=== PATIENT | male | born 1965 | race African-American/Black ===

== ENCOUNTER 2017-01-01 16:37 | Emergency (ER) | payer BC ==
--- NOTE | 2017-01-01 17:32 | ER Document Report ---
ED Medical Screen (RME) - General Chief Complaint: Arm Pain Stated Complaint: LEFT ARM TINGLING Time Seen by Provider: 01/01/17 17:19 TRAVEL OUTSIDE OF THE [place] IN LAST 30 DAYS: No - HPI Notes: 01/01/17 17:28 Patient is a 51-year-old male who presents the ED complaining of numbness and tingling from his left shoulder into his left fifth digit 2 days. Patient states that he works for [employer] and was reaching up for a box when he felt the initial twinge in his arm, but the discomfort did not start until later that evening. Patient states that he has been having some trouble sleeping because of the "pinching" in the left arm. Patient states that squeezing on his left arm can increase his symptoms into his left fifth digit. Patient states that he is just concerned because he had a double bypass in 2014. Patient states that he did have a recent visit with his PCM 2 weeks ago and had blood work performed, but he still waiting for the results of that. Patient states that he did have a stress test 1 month ago and was unremarkable. Patient denies any muscle weakness/paralysis. Denies any headache, fever, URI, sore throat, chest pain, palpitations, syncope, dyspnea on exertion, cough, wheeze, shortness of breath, dyspnea, abdominal pain, nausea/vomiting/diarrhea, dysuria, or rash. Denies any drug allergies. Patient also has a past medical history significant for high cholesterol and hypertension. His PCM is Dr. Chung. Patient reports being a former smoker, and denies any illicit drug use. No recent travel, sick contacts, or illness. I have treated and performed a rapid initial assessment of this patient. A comprehensive ED assessment and evaluation of the patient, analysis of test results and completion of medical decision making process will be conducted by additional ED providers. - Related Data Allergies/Adverse Reactions: No Known Allergies Allergy (Verified 01/01/17 17:12) Past Medical History - Past Medical History Cardiac Medical History: Reports: Hx Coronary Artery Disease, Hx Hypercholesterolemia, Hx Hypertension Renal/ Medical History: Denies: Hx Peritoneal Dialysis Past Surgical History: Reports: Hx Cardiac Surgery - double bypass, Hx Gastric Bypass Surgery - 2 vessel bypass at [facility] , Hx Orthopedic Surgery - right shoulder, back. - Immunizations Immunizations up to date: Yes Hx Diphtheria, Pertussis, Tetanus Vaccination: Yes Physical Exam - Vital signs Vitals: Temp Pulse Resp BP Pulse Ox 97.9 F 64 12 123/66 99 01/01/17 16:49 01/01/17 16:49 01/01/17 16:49 01/01/17 16:49 01/01/17 16:49 - Respiratory Respiratory status: No respiratory distress Breath sounds: Normal - Cardiovascular Rhythm: Regular Heart sounds: Normal auscultation Course - Vital Signs Vital signs: Temp Pulse Resp BP Pulse Ox 97.9 F 64 12 123/66 99 01/01/17 16:49 01/01/17 16:49 01/01/17 16:49 01/01/17 16:49 01/01/17 16:49
[2017-01-01 18:35] LABS: ABSOLUTE BASOPHILS # (AUTO) 0.1 10^3/uL (0.0-0.2); ABSOLUTE EOSINOPHILS # (AUTO) 0.2 10^3/uL (0.0-0.6); ABSOLUTE LYMPHOCYTES (AUTO) 1.9 10^3/uL (0.5-4.7); ABSOLUTE MONOCYTES (AUTO) 0.6 10^3/uL (0.1-1.4); ABSOLUTE NEUT (AUTO) 3.4 10^3/uL (1.7-8.2); EOSINOPHILS % (AUTO) 2.6 % (0-6); LYMPHOCYTES % (AUTO) 31.4 % (13-45); MEAN CORPUSCULAR HEMOGLOBIN 30.1 pg (27.0-33.4); MEAN CORPUSCULAR HGB CONC 33.4 g/dL (32.0-36.0); MEAN CORPUSCULAR VOLUME 90 fl (80-97); MONOCYTES % (AUTO) 9.7 % (3-13); RED BLOOD COUNT 4.32 10^6/uL (4.35-5.55); RED CELL DISTRIBUTION WIDTH 12.8 % (11.5-14.0); SEGMENTED NEUTROPHILS % (AUTO) 55.3 % (42-78); WHITE BLOOD COUNT 6.2 10^3/uL (4.0-10.5)
[2017-01-01 18:53] LABS: ALANINE AMINOTRANSFERASE 58 U/L (21-72); ALBUMIN 4.2 g/dL (3.5-5.0); ALKALINE PHOSPHATASE 79 U/L (38-126); ANION GAP 9 (5-19); ASPARTATE AMINO TRANSFERASE 29 U/L (17-59); BILIRUBIN,DIRECT 0.2 mg/dL (0.0-0.4); BILIRUBIN,TOTAL 0.8 mg/dL (0.2-1.3); BLOOD UREA NITROGEN 29 mg/dL (7-20); CALCIUM 9.3 mg/dL (8.4-10.2); CARBON DIOXIDE 28 mmol/L (22-30); CHLORIDE 102 mmol/L (98-107); CREATINE KINASE 229 U/L (55-170); GLUCOSE 89 mg/dL (75-110); POTASSIUM 4.4 mmol/L (3.6-5.0); SODIUM 139.3 mmol/L (137-145); TOTAL PROTEIN 7.8 g/dL (6.3-8.2)
[2017-01-01 19:04] LABS: CREATINE KINASE MB 2.14 ng/mL (<4.55)
[2017-01-01 19:06] LABS: TROPONIN I < 0.012 ng/mL
--- NOTE | 2017-01-01 19:21 | RADIOLOGY REPORT (SQ) ---
EXAM DESCRIPTION: CHEST SINGLE VIEW COMPLETED DATE/TIME: 01/01/2017 6:59 pm REASON FOR STUDY: Lt arm numbness/tingling COMPARISON: 03/21/2016 EXAM PARAMETERS: NUMBER OF VIEWS: One view. TECHNIQUE: Single frontal radiographic view of the chest acquired. RADIATION DOSE: NA LIMITATIONS: None. FINDINGS: LUNGS AND PLEURA: No opacities, masses or pneumothorax. No pleural effusion. MEDIASTINUM AND HILAR STRUCTURES: No masses. Contour normal. HEART AND VASCULAR STRUCTURES: Heart normal for technique. Normal vasculature. BONES: No acute findings. HARDWARE: Median sternotomy wires, unchanged. OTHER: No other significant finding. IMPRESSION: NO ACUTE RADIOGRAPHIC FINDING IN THE CHEST. TECHNICAL DOCUMENTATION: JOB ID: [id number]
--- NOTE | 2017-01-01 19:40 | ER Document Report ---
ED General - General Chief Complaint: Arm Pain Stated Complaint: LEFT ARM TINGLING Time Seen by Provider: 01/01/17 17:19 Notes: Patient is a 51-year-old male with a prior history of a double bypass CABG 2 years ago who presents with 2 days of paresthesias to his left forearm and fourth and fifth digit of the left hand. States that this started after he lifted a heavy box. Since that time nothing improves or worsens the symptoms. He denies any significant pain to the area, loss of actual sensation, or loss of motor function. No history of similar symptoms in the past. He has not seen his primary care doctor regarding today's concerns. He denies any chest pain, shortness of breath, diaphoresis or vomiting. TRAVEL OUTSIDE OF THE [place] IN LAST 30 DAYS: No - Related Data Allergies/Adverse Reactions: No Known Allergies Allergy (Verified 01/01/17 17:12) Past Medical History - General Information source: Patient - Social History Smoking Status: Never Smoker Chew tobacco use (# tins/day): No Frequency of alcohol use: None Drug Abuse: None Lives with: Spouse/Significant other Family History: Reviewed & Not Pertinent - Past Medical History Cardiac Medical History: Reports: Hx Coronary Artery Disease, Hx Hypercholesterolemia, Hx Hypertension Renal/ Medical History: Denies: Hx Peritoneal Dialysis Past Surgical History: Reports: Hx Cardiac Surgery - double bypass, Hx Gastric Bypass Surgery - 2 vessel bypass at [facility] , Hx Orthopedic Surgery - right shoulder, back. - Immunizations Immunizations up to date: Yes Hx Diphtheria, Pertussis, Tetanus Vaccination: Yes Review of Systems - Review of Systems Notes: Constitutional: Negative for fever. HENT: Negative for sore throat. Eyes: Negative for visual changes. Cardiovascular: Negative for chest pain. Respiratory: Negative for shortness of breath. Gastrointestinal: Negative for abdominal pain, vomiting or diarrhea. Genitourinary: Negative for dysuria. Musculoskeletal: Negative for back pain. Skin: Negative for rash. Neurological: Negative for headaches, positive for paresthesias to left forearm and hand 10 point ROS negative except as marked above and in HPI. Physical Exam - Vital signs Vitals: Temp Pulse Resp BP Pulse Ox 97.9 F 64 12 123/66 99 01/01/17 16:49 01/01/17 16:49 01/01/17 16:49 01/01/17 16:49 01/01/17 16:49 Interpretation: Normal Notes: PHYSICAL EXAMINATION: GENERAL: Well-appearing, well-nourished and in no acute distress. HEAD: Atraumatic, normocephalic. EYES: Pupils equal round and reactive to light, extraocular movements intact, sclera anicteric, conjunctiva are normal. ENT: nares patent, oropharynx clear without exudates. Moist mucous membranes. NECK: Normal range of motion, supple without lymphadenopathy LUNGS: Breath sounds clear to auscultation bilaterally and equal. No wheezes rales or rhonchi. HEART: Regular rate and rhythm without murmurs ABDOMEN: Soft, nontender, normoactive bowel sounds. No guarding, no rebound. No masses appreciated. EXTREMITIES: Normal range of motion, no pitting or edema. No cyanosis. NEUROLOGICAL: No focal neurological deficits. Moves all extremities spontaneously and on command. RMU motor and sensory distribution is intact bilaterally. PSYCH: Normal mood, normal affect. SKIN: Warm, Dry, normal turgor, no rashes or lesions noted. Course - Re-evaluation Re-evalutation: 01/01/17 19:36 Patient presents with left forearm and fifth and fourth finger tingling consistent with an ulnar radiculopathy. Patient does have paresthesias to the 4th and 5th digit but no true loss of sensation. Pain is reproduced on palpation of the ulnar nerve at the epicondyle. Patient denies any chest pain or shortness of breath. His clinical history is not consistent with acute ACS given duration of symptoms, and the nature of patient's symptoms on examination. EKG, chest x-ray and a troponin are normal. No indication for serial markers given clinical history, duration of symptoms and reassuring evaluation. At this time will discharge with return precautions and follow-up recommendations. Verbal discharge instructions given a the bedside and opportunity for questions given. Medication warnings reviewed. Patient is in agreement with this plan and has verbalized understanding of return precautions and the need for primary care follow-up in the next 24-72 hours. - Vital Signs Vital signs: Temp Pulse Resp BP Pulse Ox 97.9 F 52 L 18 129/81 H 99 01/01/17 20:57 01/01/17 20:57 01/01/17 20:57 01/01/17 20:57 01/01/17 20:57 - Laboratory Result Diagrams: 01/01/17 18:20 01/01/17 18:20 Laboratory results interpreted by me: 01/01/17 01/01/17 18:20 18:20 RBC 4.32 L Hgb 13.0 L BUN 29 H Creatinine 1.50 H Est GFR (Non-Af Amer) 49 L Creatine Kinase 229 H - Diagnostic Test Radiology reviewed: Image reviewed, Reports reviewed Radiology results interpreted by me: 01/01/17 19:43 CXR: No acute infiltrate or pneumothorax - EKG Interpretation by Me Additional EKG results interpreted by me: 01/01/17 19:44 Sinus bradycardia. Rate 57. No ST elevations or depressions. QTC is 398. Discharge - Discharge Clinical Impression: Neurapraxia of left ulnar nerve Qualifiers: Encounter type: initial encounter Qualified Code(s): S54.02XA - Injury of ulnar nerve at forearm level, left arm, initial encounter Condition: Good Disposition: HOME, SELF-CARE Additional Instructions: Your symptoms are likely due to irritation of your ulnar nerve. You should take ibuprofen 600 mg every 6 hours to help reduce the inflammation and improve your pain. You can also apply heat to your elbow area where you have pain. Follow-up with your primary care doctor in the next several days. Return if you develop loss of sensation, weakness, chest pain, shortness of breath, or any other symptoms that are worrisome to you.
[2017-01-01 20:58] VITALS: BP 129/81
--- NOTE | 2017-01-02 13:43 | EKG REPORT ---
SEVERITY:- NORMAL ECG - SINUS RHYTHM ST ELEV, PROBABLE NORMAL EARLY REPOL PATTERN : Confirmed by: Sonia Kumar MD 02-Jan-2017 13:43:02
== END 2017-01-01 20:57 | disposition home or self-care (01) ==
LOC: ER 16:37
DX: S54.02XA Injury of ulnar nerve at forearm level, left arm, initial encounter (principal); X50.0XXA Overexertion from strenuous movement or load, initial encounter; R20.2 Paresthesia of skin; R00.1 Bradycardia, unspecified; I10 Essential (primary) hypertension; Z95.1 Presence of aortocoronary bypass graft; I25.10 Atherosclerotic heart disease of native coronary artery without angina pectoris; Z98.84 Bariatric surgery status
CPT/HCPCS: 36415; 71010; 80053; 82550; 82553; 84484; 85025; 93005; 93010; 99284

== ENCOUNTER 2018-07-28 20:36 | Emergency (ER) | payer BC ==
[2018-07-28 21:30] VITALS: BP 158/72
[2018-07-28] MEDS ORDERED: SUCRALFATE 1 GM TABLET PO ONE (23:26)
[2018-07-28] MEDS ORDERED: METOCLOPRAMIDE HCL ORAL SOLN 10 MG/10 ML UDCUP PO ONE (23:26)
[2018-07-28] MEDS ORDERED: LIDOCAINE 2% VISCOUS SOLN 20 ML UDCUP PO ONE (23:26)
[2018-07-28] MEDS ORDERED: MAG HYDROX/AL HYDROX/SIMETH SUSP 30 ML UDCUP PO ONE (23:26)
[2018-07-28] MEDS ORDERED: FAMOTIDINE 20 MG TABLET PO ONE (23:26)
[2018-07-28 23:46] LABS: ABSOLUTE BASOPHILS # (AUTO) 0.1 10^3/uL (0.0-0.2); ABSOLUTE EOSINOPHILS # (AUTO) 0.2 10^3/uL (0.0-0.6); ABSOLUTE MONOCYTES (AUTO) 0.9 10^3/uL (0.1-1.4); ABSOLUTE NEUT (AUTO) 5.5 10^3/uL (1.7-8.2); BASOPHILS % (AUTO) 0.8 % (0-2); HEMATOCRIT 44.6 % (37.9-51.0); HEMOGLOBIN 15.3 g/dL (13.5-17.0); LYMPHOCYTES % (AUTO) 23.3 % (13-45); MEAN CORPUSCULAR HEMOGLOBIN 29.4 pg (27.0-33.4); MEAN CORPUSCULAR HGB CONC 34.3 g/dL (32.0-36.0); MEAN CORPUSCULAR VOLUME 86 fl (80-97); PLATELET COUNT 251 10^3/uL (150-450); RED CELL DISTRIBUTION WIDTH 14.6 % (11.5-14.0); SEGMENTED NEUTROPHILS % (AUTO) 63.9 % (42-78); TOTAL CELLS COUNTED % (AUTO) 100 %; WHITE BLOOD COUNT 8.6 10^3/uL (4.0-10.5)
[2018-07-28 23:58] LABS: ALANINE AMINOTRANSFERASE 40 U/L (21-72); ALKALINE PHOSPHATASE 68 U/L (38-126); ANION GAP 8 (5-19); ASPARTATE AMINO TRANSFERASE 34 U/L (17-59); BILIRUBIN,DIRECT 0.2 mg/dL (0.0-0.4); BILIRUBIN,TOTAL 0.7 mg/dL (0.2-1.3); BLOOD UREA NITROGEN 20 mg/dL (7-20); CARBON DIOXIDE 27 mmol/L (22-30); CHLORIDE 105 mmol/L (98-107); GLUCOSE 96 mg/dL (75-110); LIPASE 81.7 U/L (23-300); POTASSIUM 4.5 mmol/L (3.6-5.0); SODIUM 139.6 mmol/L (137-145)
--- NOTE | 2018-07-29 00:44 | RADIOLOGY REPORT (SQ) ---
EXAM DESCRIPTION: XR CHEST 1 VIEW COMPLETED DATE/TME: 07/28/2018 23:26 CLINICAL HISTORY: 53 years, Male, cp COMPARISON: 03/21/2016 NUMBER OF VIEWS: One TECHNIQUE: AP view of the chest LIMITATIONS: None. FINDINGS: Lungs are clear. The heart is at the upper limit of normal in size. There is no pneumothorax or pleural effusion. Median sternotomy wires are noted. IMPRESSION: No acute cardiopulmonary abnormality copyright 2010 [employer]- All Rights Reserved
--- NOTE | 2018-07-29 00:50 | ER Document Report ---
ED General - General Chief Complaint: Other Stated Complaint: HICCUPS PAIN Time Seen by Provider: 07/28/18 23:15 Primary Care Provider: KIM CM MD [Primary Care Provider] - Follow up as needed Notes: Patient is a 53-year-old male with a past history of coronary artery disease, hypertension, presents complaining of 3 days of intractable hiccups with associated nausea, feeling of bloating in the upper abdomen, as well as chest discomfort with recurrent hiccuping episodes. States that his symptoms started within 30 minutes of receiving an injection of dexamethasone in his foot 3 days ago. They have been ongoing since that time. He tried to take baking soda without relief of his symptoms. Eating worsens his symptoms. No history of similar symptoms in the past. Has not seen his primary care physician regarding today's concerns. Denies any shortness of breath, hematemesis or vomiting. TRAVEL OUTSIDE OF THE [place] IN LAST 30 DAYS: No - Related Data Allergies/Adverse Reactions: No Known Allergies Allergy (Verified 01/01/17 17:12) Past Medical History - General Information source: Patient - Social History Smoking Status: Never Smoker Frequency of alcohol use: None Drug Abuse: None Lives with: Spouse/Significant other Family History: Reviewed & Not Pertinent Patient has suicidal ideation: No Patient has homicidal ideation: No - Past Medical History Cardiac Medical History: Reports: Hx Coronary Artery Disease, Hx Hypercholes terolemia, Hx Hypertension Renal/ Medical History: Denies: Hx Peritoneal Dialysis Past Surgical History: Reports: Hx Cardiac Surgery - double bypass, Hx Gastric Bypass Surgery - 2 vessel bypass at [facility] , Hx Orthopedic Surgery - right shoulder, back. - Immunizations Immunizations up to date: Yes Hx Diphtheria, Pertussis, Tetanus Vaccination: Yes Review of Systems - Review of Systems Notes: Constitutional: Negative for fever. Positive for intractable hiccups HENT: Negative for sore throat. Eyes: Negative for visual changes. Cardiovascular: Positive for chest discomfort with hiccuping. Respiratory: Negative for shortness of breath. Gastrointestinal: Negative for epigastric abdominal discomfort and nausea. Genitourinary: Negative for dysuria. Musculoskeletal: Negative for back pain. Skin: Negative for rash. Neurological: Negative for headaches, weakness or numbness. 10 point ROS negative except as marked above and in HPI. Physical Exam - Vital signs Vitals: Temp Pulse Resp BP Pulse Ox 98.2 F 77 16 158/72 H 98 07/28/18 21:29 07/28/18 21:29 07/28/18 21:29 07/28/18 21:29 07/28/18 21:29 Interpretation: Hypertensive Notes: PHYSICAL EXAMINATION: GENERAL: Appears moderately uncomfortable but in no acute distress HEAD: Atraumatic, normocephalic. EYES: Pupils equal round and reactive to light, extraocular movements intact, sclera anicteric, conjunctiva are normal. ENT: nares patent, oropharynx clear without exudates. Moist mucous membranes. NECK: Normal range of motion, supple without lymphadenopathy LUNGS: Breath sounds clear to auscultation bilaterally and equal. No wheezes rales or rhonchi. HEART: Regular rate and rhythm without murmurs ABDOMEN: Soft, nontender, normoactive bowel sounds. No guarding, no rebound. No masses appreciated. EXTREMITIES: Normal range of motion, no pitting or edema. No cyanosis. NEUROLOGICAL: No focal neurological deficits. Moves all extremities spontaneously and on command. PSYCH: Normal mood, normal affect. SKIN: Warm, Dry, normal turgor, no rashes or lesions noted. Course - Re-evaluation Re-evalutation: 07/29/18 00:46 Presentation of recurrent hiccups with a feeling of bloating in the upper abdomen. Patient did describe some sensation of chest discomfort with the frequent hiccuping although denies that it feels anything like chest pain that he has had in the past related to his cardiac issues. Low clinical suspicion for ACS given clinical history, exam, EKG without ST elevations or depressions, and negative initial troponin. Given that symptoms have been ongoing for 3 days I do not believe serial cardiac markers are indicated. PE also seems unlikely given clinical history, absence of tachycardia or dyspnea. Wells score 0. CXR without evidence of pneumothorax or pneumonia. No evidence of esophageal perforation. No widened mediastinum. Aortic dissection also seems unlikely given history, symmetric pulses, CXR, and vitals. Patient had resolution of symptoms after receiving a GI cocktail and famotidine. His symptoms did start after receiving dexamethasone injection and I suspect they are likely related to his recurrent hiccups are known side effect of this medication. At this time will discharge with return precautions and follow-up recommendations. Verbal discharge instructions given a the bedside and opportunity for questions given. Medication warnings reviewed. Patient is in agreement with this plan and has verbalized understanding of return precautions and the need for primary care follow-up in the next 24-72 hours. - Vital Signs Vital signs: Temp Pulse Resp BP Pulse Ox 98.2 F 77 16 158/72 H 98 07/28/18 21:29 07/28/18 21:29 07/28/18 21:29 07/28/18 21:29 07/28/18 21:29 - Laboratory Result Diagrams: 07/28/18 23:33 07/28/18 23:33 Laboratory results interpreted by me: 07/28/18 23:33 RDW 14.6 H - Diagnostic Test Radiology reviewed: Image reviewed, Reports reviewed Radiology results interpreted by me: 07/29/18 00:46 Chest x-ray: No acute infiltrate or pneumothorax - EKG Interpretation by Me Additional EKG results interpreted by me: 07/29/18 00:46 Sinus rhythm, rate 70. No ST elevations or depressions. QTC is 389. Discharge - Discharge Clinical Impression: Intractable hiccups, Medication side effect Chest pain Qualifiers: Chest pain type: unspecified Qualified Code(s): R07.9 - Chest pain, unspecified Gastroesophageal reflux Qualifiers: Esophagitis presence: esophagitis presence not specified Qualified Code(s): K21.9 - Gastro-esophageal reflux disease without esophagitis Condition: Good Disposition: HOME, SELF-CARE Additional Instructions: Your symptoms appear to be most consistent with stomach or upper intestinal irritation likely secondary to the dexamethasone that you received. This also likely accounts for the hiccups that you have been having. Your blood work, EKG and chest x-ray are reassuring today do not suggest a more worrisome cause. Please begin taking famotidine 40 mg in the morning and 40 mg at night. Take Carafate prior to meals. You may also take medicine such as Pepto-Bismol or Tums to assist with your pain. Please return to emergency department immediately if you have worsening of your pain, shortness of breath, vomiting, become unable to exert yourself due to pain or difficulty breathing, you pass out, or have any pain that radiates into your arms, jaw, or back. Please also return if you have any additional symptoms that are concerning to you. As we have discussed, the most important thing is lifestyle changes. You need to avoid smoking, sodas, tea, coffee, alcohol, spicy foods, and acidic foods such as citrus fruits, tomato based products, berries, and most fruit juices. Prescriptions: Famotidine 40 mg PO BID #60 tablet Sucralfate [Carafate 1 gm Tablet] 1 gm PO ACHS #120 tablet Referrals: KIM CM MD [Primary Care Provider] - Follow up in 3-5 days
--- NOTE | 2018-07-29 08:41 | EKG REPORT ---
SEVERITY:- BORDERLINE ECG - SINUS RHYTHM PROBABLE LEFT ATRIAL ABNORMALITY : Confirmed by: Sonia Kumar MD 29-Jul-2018 08:40:25
== END 2018-07-29 01:00 | disposition home or self-care (01) ==
LOC: ER 20:36
DX: R06.6 Hiccough (principal); T50.905A Adverse effect of unspecified drugs, medicaments and biological substances, initial encounter; K21.9 Gastro-esophageal reflux disease without esophagitis; R07.9 Chest pain, unspecified; R11.0 Nausea; I10 Essential (primary) hypertension; I25.10 Atherosclerotic heart disease of native coronary artery without angina pectoris; Z95.1 Presence of aortocoronary bypass graft
CPT/HCPCS: 93005; 99284; 36415; 83690; 85025; 80053; 84484; 71045; 93010; J3490

== ENCOUNTER 2019-03-15 19:03 | Emergency (ER) | payer BC ==
[2019-03-15] MEDS ORDERED: ASPIRIN 81 MG TABLET, CHEWABLE PO ONE (19:15)
--- NOTE | 2019-03-15 19:23 | ER Document Report ---
ED Medical Screen (RME) - General Chief Complaint: Chest Pain > 30 Stated Complaint: CHEST PAIN Time Seen by Provider: 03/15/19 19:14 Primary Care Provider: KIM CM MD [Primary Care Provider] - Follow up as needed Mode of Arrival: Wheelchair Information source: Patient Notes: 53-year-old man presents to ED for complaint of chest pain on the right side that started 2 nights ago but got much worse today in the heat. Denies unusual sweating nausea or vomiting. 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 Patient denies smoking drinking or using any illicit drugs. He states he has smoked in the past but does not at this time. Patient does have a history of coronary artery disease with a double bypass. States she also has history of high blood pressure and cholesterol but no other medical history. Patient is alert oriented respirations regular and unlabored at this time. I have greeted and performed a rapid initial assessment of this patient. A comprehensive ED assessment and evaluation of the patient, analysis of test results and completion of medical decision making process will be conducted by an additional ED providers. TRAVEL OUTSIDE OF THE [place] IN LAST 30 DAYS: No - Related Data Allergies/Adverse Reactions: No Known Allergies Allergy (Verified 01/01/17 17:12) Past Medical History - Past Medical History Cardiac Medical History: Reports: Hx Coronary Artery Disease, Hx Hypercholesterolemia, Hx Hypertension Renal/ Medical History: Denies: Hx Peritoneal Dialysis Past Surgical History: Reports: Hx Cardiac Surgery - double bypass, Hx Gastric Bypass Surgery - 2 vessel bypass at [facility] , Hx Orthopedic Surgery - right shoulder, back. - Immunizations Immunizations up to date: Yes Hx Diphtheria, Pertussis, Tetanus Vaccination: Yes Physical Exam - Vital signs Vitals: Temp Pulse Resp BP Pulse Ox 97.9 F 63 20 132/72 H 99 03/15/19 19:07 03/15/19 19:07 03/15/19 19:07 03/15/19 19:07 03/15/19 19:07 Course - Vital Signs Vital signs: Temp Pulse Resp BP Pulse Ox 97.9 F 63 20 132/72 H 99 03/15/19 19:07 03/15/19 19:07 03/15/19 19:07 03/15/19 19:07 03/15/19 19:07 Doctor's Discharge - Discharge Referrals: KIM CM MD [Primary Care Provider] - Follow up as needed
--- NOTE | 2019-03-15 19:58 | RADIOLOGY REPORT (SQ) ---
EXAM DESCRIPTION: CHEST 2 VIEWS COMPLETED DATE/TIME: 03/15/2019 7:30 pm REASON FOR STUDY: chest pain COMPARISON: 07/29/2018 EXAM PARAMETERS: NUMBER OF VIEWS: two views TECHNIQUE: Digital Frontal and Lateral radiographic views of the chest acquired. RADIATION DOSE: NA LIMITATIONS: none FINDINGS: LUNGS AND PLEURA: No opacities, masses or pneumothorax. No pleural effusion. MEDIASTINUM AND HILAR STRUCTURES: No masses or contour abnormalities. HEART AND VASCULAR STRUCTURES: Heart normal size. No evidence for failure. BONES: No acute findings. HARDWARE: Sternotomy wires. OTHER: No other significant finding. IMPRESSION: NO ACUTE RADIOGRAPHIC FINDING IN THE CHEST. TECHNICAL DOCUMENTATION: JOB ID: [id number] [employer]- All Rights Reserved Reading location - IP/workstation name: [email or web address]
[2019-03-15 20:16] LABS: ABSOLUTE LYMPHOCYTES (AUTO) 1.4 10^3/uL (0.5-4.7); ABSOLUTE MONOCYTES (AUTO) 0.7 10^3/uL (0.1-1.4); ABSOLUTE NEUT (AUTO) 6.5 10^3/uL (1.7-8.2); BASOPHILS % (AUTO) 0.5 % (0-2); EOSINOPHILS % (AUTO) 0.3 % (0-6); HEMATOCRIT 34.3 % (37.9-51.0); HEMOGLOBIN 11.7 g/dL (13.5-17.0); LYMPHOCYTES % (AUTO) 16.2 % (13-45); MEAN CORPUSCULAR HEMOGLOBIN 29.9 pg (27.0-33.4); MEAN CORPUSCULAR HGB CONC 34.1 g/dL (32.0-36.0); MEAN CORPUSCULAR VOLUME 88 fl (80-97); MONOCYTES % (AUTO) 7.7 % (3-13); PLATELET COUNT 271 10^3/uL (150-450); RED BLOOD COUNT 3.91 10^6/uL (4.35-5.55); RED CELL DISTRIBUTION WIDTH 12.7 % (11.5-14.0); SEGMENTED NEUTROPHILS % (AUTO) 75.3 % (42-78); TOTAL CELLS COUNTED % (AUTO) 100 %; WHITE BLOOD COUNT 8.7 10^3/uL (4.0-10.5)
[2019-03-15 20:28] LABS: INTERNATIONAL RATION (INR) 1.07; PARTIAL THROMBOPLASTIN TIME 25.6 SEC (23.5-35.8); PROTHROMBIN TIME 13.9 SEC (11.4-15.4)
[2019-03-15 20:31] LABS: ALBUMIN 4.4 g/dL (3.5-5.0); ALKALINE PHOSPHATASE 93 U/L (38-126); ANION GAP 11 (5-19); ASPARTATE AMINO TRANSFERASE 67 U/L (17-59); BILIRUBIN,DIRECT 0.1 mg/dL (0.0-0.4); BILIRUBIN,TOTAL 1.1 mg/dL (0.2-1.3); BLOOD UREA NITROGEN 22 mg/dL (7-20); CALCIUM 9.5 mg/dL (8.4-10.2); CARBON DIOXIDE 27 mmol/L (22-30); CHLORIDE 99 mmol/L (98-107); CREATINE KINASE 447 U/L (55-170); GLUCOSE 101 mg/dL (75-110); POTASSIUM 4.6 mmol/L (3.6-5.0); TOTAL PROTEIN 8.1 g/dL (6.3-8.2)
--- NOTE | 2019-03-15 20:41 | ER Document Report ---
ED General - General Chief Complaint: Chest Pain > 30 Stated Complaint: CHEST PAIN Time Seen by Provider: 03/15/19 19:14 Primary Care Provider: KIM CM MD [COMMUNITY BASED STAFF] - Follow up as needed Mode of Arrival: Wheelchair TRAVEL OUTSIDE OF THE [place] IN LAST 30 DAYS: No - HPI Notes: 53-year-old man presents to ED for complaint of chest pain on the right side that started 2 nights ago but got much worse today in the heat. Denies unusual sweating nausea or vomiting. 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 Patient denies smoking drinking or using any illicit drugs. He states he has smoked in the past but does not at this time. Patient does have a history of coronary artery disease with a double bypass. States she also has history of high blood pressure and cholesterol but no other medical history. Patient is alert oriented respirations regular and unlabored at this time. Patient had bypass surgery done 2 years ago two-vessel down in [place]. The patient states he had a nuclear stress test done approximately 1 month ago. The patient was seen earlier this week by cardiology and told everything looked fine. Patient reports chest pain came on 2 days ago and then seemed to worsen somewhat when he was out working in the heat today. He reports feeling diaphoretic but he attributed that to being out in the heat. The patient denies any significant shortness of breath and reports no nausea or vomiting. He denies any cough. The patient reports that the chest discomfort felt better with rest last night and then seemed to recur again today. After laying down in bed at rest the patient reports pain came down to a 2 and then with supplemental oxygen and 1 inch of nitroglycerin paste the patient stated the pain was resolved. Patient reports no significant cough or congestion or abdominal pain. No back pain. Patient questioned if he was having gas pains related to this discomfort. Patient had aspirin earlier today. Patient has been compliant with his medications. - Related Data Allergies/Adverse Reactions: No Known Allergies Allergy (Verified 01/01/17 17:12) Past Medical History - General Information source: Patient - Social History Smoking Status: Former Smoker Frequency of alcohol use: None Drug Abuse: None Lives with: Family Family History: Reviewed & Not Pertinent Patient has suicidal ideation: No Patient has homicidal ideation: No - Past Medical History Cardiac Medical History: Reports: Hx Coronary Artery Disease, Hx Hypercholesterolemia, Hx Hypertension Renal/ Medical History: Denies: Hx Peritoneal Dialysis Past Surgical History: Reports: Hx Cardiac Surgery - double bypass, Hx Gastric Bypass Surgery - 2 vessel bypass at [facility] , Hx Orthopedic Surgery - right shoulder, back. - Immunizations Immunizations up to date: Yes Hx Diphtheria, Pertussis, Tetanus Vaccination: Yes Review of Systems - Review of Systems -: Yes All other systems reviewed and negative Physical Exam - Vital signs Vitals: Temp Pulse Resp BP Pulse Ox 97.9 F 63 20 132/72 H 99 03/15/19 19:07 03/15/19 19:07 03/15/19 19:07 03/15/19 19:07 03/15/19 19:07 - Notes Notes: PHYSICAL EXAMINATION: GENERAL: Well-appearing, well-nourished and in no acute distress. HEAD: Atraumatic, normocephalic. EYES: Pupils equal round and reactive to light, extraocular movements intact, sclera anicteric, conjunctiva are normal. ENT: Nares patent, oropharynx clear without exudates. Moist mucous membranes. NECK: Normal range of motion, supple without lymphadenopathy LUNGS: Breath sounds clear to auscultation bilaterally and equal. No wheezes rales or rhonchi. Unable to reproduce pain on palpation. Midline sternotomy scar well healed. HEART: Regular rate and rhythm without murmurs. ABDOMEN: Soft, nontender, nondistended abdomen. No guarding, no rebound. No masses appreciated. Musculoskeletal: Normal range of motion, no pitting or edema. No cyanosis. NEUROLOGICAL: Cranial nerves grossly intact. Normal speech, normal gait. Normal sensory, motor exams PSYCH: Normal mood, normal affect. SKIN: Warm, Dry, normal turgor, no rashes or lesions noted. - General General appearance: Appears well Course - Re-evaluation Re-evalutation: 03/15/19 21:23 Patient was placed upon oxygen and rest and was given 1 inch of nitroglycerin paste and he was pain-free thereafter. Troponin and CK-MB were both positive on the patient, consistent with subendocardial ND. Patient had already had aspirin earlier in the day. Patient was heme-negative on rectal exam and he was started on heparin with a standard bolus. Discussion was undertaken with the patient and his family and they were in agreement with the patient being transferred to [facility] for cardiac evaluation and catheterization. Discussion was undertaken with Dr. Hinton, and he accepted patient in transfer. No bed was immediately available for the patient in transfer, so a slot at 9 AM on the catheterization schedule was made for tomorrow at [facility]. 03/15/19 21:34 Bed was made available sooner for the patient and he was prepared for transfer. Repeat evaluation on the patient showed him to be pain-free and vital signs were stable. Patient was clear and stable for transfer to [facility]. 03/15/19 22:43 - Vital Signs Vital signs: Temp Pulse Resp BP Pulse Ox 97.9 F 63 19 135/86 H 95 03/15/19 19:07 03/15/19 19:07 03/15/19 22:01 03/15/19 22:01 03/15/19 22:01 - Laboratory Result Diagrams: 03/15/19 19:55 03/15/19 19:55 Laboratory results interpreted by me: 03/15/19 03/15/19 03/15/19 19:55 19:55 19:55 RBC 3.91 L Hgb 11.7 L Hct 34.3 L Sodium 136.5 L BUN 22 H AST 67 H Creatine Kinase 447 H CK-MB (CK-2) 14.00 H - EKG Interpretation by De EKG shows normal: Sinus rhythm Additional EKG results interpreted by me: 03/15/19 21:20 EKG is interpreted by ut showed normal sinus rhythm heart rate of 62. There is no gross evidence for acute ND or ischemia noted. Intervals appear appropriate. Critical Care Note - Critical Care Note Total time excluding time spent on procedures (mins): 43 Discharge - Discharge Clinical Impression: Subendocardial ND first episode care Chest pain Qualifiers: Chest pain type: unspecified Qualified Code(s): R07.9 - Chest pain, unspecified Condition: Stable Disposition: [facility] Referrals: KIM CM MD [COMMUNITY BASED STAFF] - Follow up as needed
[2019-03-15 20:48] LABS: TROPONIN I 2.15 ng/mL
[2019-03-15] MEDS ORDERED: HEPARIN SODIUM,PORCINE/D5W 25,000 UNIT/250 ML RTUINJ IV PRN (21:20)
[2019-03-15] MEDS ORDERED: HEPARIN SOD (PORCINE) 1,000 UNIT/ML 10 ML VIAL IV ONE (21:20)
[2019-03-15] MEDS ORDERED: NITROGLYCERIN 2% OINTMENT 1 GM PACKET ONE (21:29)
[2019-03-15] MEDS ORDERED: ASPIRIN 325 MG TABLET PO ONE (21:31)
[2019-03-15] MEDS ORDERED: NITROGLYCERIN 2% OINTMENT 1 GM PACKET TP ONE (21:33)
--- NOTE | 2019-03-15 21:48 | EKG REPORT ---
SEVERITY:- NORMAL ECG - SINUS RHYTHM : Confirmed by: Sonia Kumar MD 15-Mar-2019 21:47:39
[2019-03-15 23:31] VITALS: BP 122/75
[2019-03-16] MEDS ORDERED: NITROGLYCERIN 2% OINTMENT 1 GM PACKET TP SCH
[2019-03-16] MEDS ORDERED: HEPARIN SOD (PORCINE) 1,000 UNIT/ML 10 ML VIAL IV PRN (00:21)
[2019-03-16] MEDS ORDERED: NITROGLYCERIN 2% OINTMENT 1 GM PACKET TP ONE (21:26)
== END 2019-03-15 23:18 | disposition short-term general hospital (02) ==
LOC: ER 19:03
DX: I21.4 Non-ST elevation (NSTEMI) myocardial infarction (principal); R07.9 Chest pain, unspecified; E78.00 Pure hypercholesterolemia, unspecified; I25.10 Atherosclerotic heart disease of native coronary artery without angina pectoris; I10 Essential (primary) hypertension; Z95.1 Presence of aortocoronary bypass graft; Z98.84 Bariatric surgery status
CPT/HCPCS: 93005; 36415; 82553; 82550; 83735; 84443; 85025; 85610; 85730; 80053; 84484; 83880; 71046; 93010; J1644 ×2